=== PATIENT | male | born 1985 | race Hispanic/Latino ===

== ENCOUNTER 2018-08-27 10:22 | Emergency (ER) | payer SELFPAY ==
[~2018-08-27] VITALS: Ht 172.7 cm; Wt 142.9 kg
[~2018-08-27 10:22] MED LIST: BENTYL20 MG PO; LISINOPRIL10 MG PO; METFORMIN HCL500 MG PO
--- OUTSIDE RECORDS SUMMARY | 2018-08-27 10:24 | XMS REPORT | Clinical Summary ---
Author Author [facility] Organization [facility] Address Unknown Phone Unavailable Care Team Providers Care Defensive Line Coach Name Role Phone Asked, No Pcp PCP Unavailable Allergies No Known Allergies Medications End Date Status Medication Sig Dispensed Refills Start Date Active LISINOPRIL ORAL Take by mouth 0 daily. Unknown dose. Retail pharmacy unable to confirm dose and frequency-pha rmacy stated patient has not picked up prescriptions for a year. Active metFORMIN (GLUCOPHAGE) Take 500 mg 0 500 mg tablet by mouth 2 (two) times a day with meals. Retail pharmacy unable to confirm dose and frequency-pha rmacy stated patient has not picked up prescriptions for a year. 02/28/2018 sucralfate (CARAFATE) 1 Take 1 tablet 120 tablet 0 gram tablet (1 g total) 8 by mouth 4 (four) times a day for 30 days. 02/03/2018 ondansetron ODT Take 1 tablet 15 tablet 0 (ZOFRAN-ODT) 4 MG (4 mg total) 8 disintegrating tablet by mouth every 8 (eight) hours as needed for nausea or vomiting for up to 5 days. Active Problems Not on file Encounters Care Team Description Date Type Specialty Minh Louise MD Right upper quadrant abdominal pain (Primary Dx); Non-intractable vomiting with nausea, unspecified vomiting type; Type 2 diabetes mellitus with hyperglycemia, without long-term current use of insulin; Dehydration 01/29/2018 Emergency Emergency Medicine after 08/26/2017 Social History Date Tobacco Use Types Packs/Day Years Used Current Every Day Smoker Smokeless Tobacco: Never Used Alcohol Use Drinks/Week oz/Week Comments Yes Sex Assigned at Date Recorded Not on file Industry Job Start Date Occupation Not on file Not on file Not on file Travel End Travel History Travel Start No recent travel history available. Last Filed Vital Signs Time Taken Vital Sign Reading 01/29/2018 3:27 PM CDT Blood Pressure 176/93 01/29/2018 3:27 PM CDT Pulse 96 01/29/2018 11:03 AM CDT Temperature 36.9 C (98.5 F) 01/29/2018 3:27 PM CDT Respiratory Rate 18 01/29/2018 3:27 PM CDT Oxygen Saturation 98% - Inhaled Oxygen - Concentration - Weight - - Height - - Body Mass Index - Plan of Treatment Health Maintenance Due Date Last Done Comments DIABETIC RETINAL EYE EXAM 1984 DIABETIC FOOT EXAM 1994 URINE MICROALBUMIN 1994 HEPATITIS B VACCINES (1 11/22/2003 of 3 - Risk 3-dose series) INFLUENZA VACCINE 04/15/2018 IPV VACCINES Aged Out No longer eligible based on patient's age to complete this topic MENINGOCOCCAL VACCINE Aged Out No longer eligible based on patient's age to complete this topic Procedures Comments Procedure Name Priority Date/Time Associated Diagnosis POC GLUCOSE Routine 01/29/2018 3:21 PM CDT US GALLBLADDER STAT 01/29/2018 1:[address] ABDOMEN PELVIS W STAT 01/29/2018 CONTRAST 1:11 PM CDT POC GLUCOSE Routine 01/29/2018 11:37 AM CDT CREATINE KINASE, TOTAL STAT 01/29/2018 (CPK) 11:20 AM CDT C-REACTIVE PROTEIN STAT 01/29/2018 11:20 AM CDT ZZESTIMATED GFR STAT 01/29/2018 11:20 AM CDT HC COMPLETE BLD COUNT STAT 01/29/2018 W/AUTO DIFF 11:20 AM CDT LIPASE LEVEL STAT 01/29/2018 11:20 AM CDT COMPREHENSIVE METABOLIC STAT 01/29/2018 PANEL 11:20 AM CDT URINALYSIS SCREEN AND STAT 01/29/2018 MICROSCOPY, WITH REFLEX 11:20 AM CDT TO CULTURE URINE CULTURE STAT 01/29/2018 11:20 AM CDT after 08/26/2017 Results * POC glucose (01/29/2018 3:21 PM CDT) Only the most recent of 2 results within the time period is included. POC glucose 180 (H) 65 - 99 mg/dL [facility] DEPARTMENT OF Comment: PATHOLOGY AND [facility] Notified RN GENOMIC MEDICINE Meter ID: [id number] House Mover Supervisor: TIMOTEO PRESCOTT Performing Organization Address [facility] Servicescode Phone Number [facility] DEPARTMENT OF [address] [place] [phone] PATHOLOGY AND GENOMIC MEDICINE * US Gallbladder (01/29/2018 1:30 PM CDT) Narrative Performed At [facility]:epigastric pain COMPARISON:None. FINDINGS: PANCREAS: The pancreas is not well seen on the current study. LIVER: The liver has no mass lesion. There is no intrahepatic biliary dilatation. The liver has a increased fatty echogenic appearance. CBD: 0.4, within normal limits. Portal vein: The portal vein demonstrates normal hepatopedal flow. Gallbladder:The gallbladder does not have any stones. There is no wall thickening or any pericholecystic fluid. IMPRESSION: 1. The gallbladder does not have any stones. 2. There is no wall thickening nor any pericholecystic fluid. 3. Fatty echogenic appearance of the liver. [facility][id number] Procedure Note [facility], Radiology Results Incoming - 01/29/2018 1:47 PM CDT EXAMINATION: US GALLBLADDER CLINICAL HISTORY: epigastric pain COMPARISON: None. FINDINGS: PANCREAS: The pancreas is not well seen on the current study. LIVER: The liver has no mass lesion. There is no intrahepatic biliary dilatation. The liver has a increased fatty echogenic appearance. CBD: 0.4 , within normal limits. Portal vein: The portal vein demonstrates normal hepatopedal flow. Gallbladder: The gallbladder does not have any stones. There is no wall thickening or any pericholecystic fluid. IMPRESSION: 1. The gallbladder does not have any stones. 2. There is no wall thickening nor any pericholecystic fluid. 3. Fatty echogenic appearance of the liver. [facility]-[id number] Performing Organization Address [facility]/Zipcode Phone Number [facility] [address] [place] [address] * CT Abdomen Pelvis W Contrast (01/29/2018 1:11 PM CDT) Narrative Performed At EXAMINATION:CT ABDOMEN PELVIS W CONTRAST [facility] CLINICAL HISTORY:abdominal painN V TECHNIQUE: Multiple axial images of the abdomen and pelvis were obtained following intravenous administration of iodinated contrast. Sagittal and coronal computerized reformatted images were also obtained. CT imaging was performed with iterative reconstruction technique and/or automated exposure control to reduce radiation dose. COMPARISON:None. FINDINGS: Abdomen: Heart size is within normal limits. Lung bases are within normal limits. Liver is fatty. Gallbladder is unremarkable. Spleen, pancreas, and adrenals are within normal limits. Kidneys are also within normal limits. The abdominal aorta is unremarkable. Tiny left para-aortic lymph nodes are present. Appendix is unremarkable. Pelvis: There is no enlarged pelvic lymph node.Bladder is unremarkable.Bones are age appropriate. IMPRESSION: No acute process identified. Fatty infiltration of the liver. [facility]-[id number] Procedure Note Hm Interface, Radiology Results Incoming - 01/29/2018 1:44 PM CDT EXAMINATION: CT ABDOMEN PELVIS W CONTRAST CLINICAL HISTORY: abdominal pain N V TECHNIQUE: Multiple axial images of the abdomen and pelvis were obtained following intravenous administration of iodinated contrast. Sagittal and coronal computerized reformatted images were also obtained. CT imaging was performed with iterative reconstruction technique and/or automated exposure control to reduce radiation dose. COMPARISON: None. FINDINGS: Abdomen: Heart size is within normal limits. Lung bases are within normal limits. Liver is fatty. Gallbladder is unremarkable. Spleen, pancreas, and adrenals are within normal limits. Kidneys are also within normal limits. The abdominal aorta is unremarkable. Tiny left para-aortic lymph nodes are present. Appendix is unremarkable. Pelvis: There is no enlarged pelvic lymph node. Bladder is unremarkable. Bones are age appropriate. IMPRESSION: No acute process identified. Fatty infiltration of the liver. [facility]-[id number] Performing Organization Address City/State/Zipcode Phone Number [facility] [address] [place] [address] * Urinalysis screen and microscopy, with reflex to culture (01/29/2018 11:20 AM CDT) Specimen site Clean catch [facility]MENT OF PATHOLOGY AND GENOMIC MEDICINE Color, UA Yellow [facility] OF PATHOLOGY AND GENOMIC MEDICINE Appearance, UA Clear [facility] OF PATHOLOGY AND GENOMIC MEDICINE Specific gravity, UA 1.025 1.001 - 1.035 [facility] DE[facility] OF PATHOLOGY AND GENOMIC MEDICINE pH, UA 6.0 5.0 - 8.5 [facility] OF PATHOLOGY AND GENOMIC MEDICINE Protein, UA 1+ (A) Negative [facility] OF PATHOLOGY AND GENOMIC MEDICINE Glucose, UA 3+ (A) Negative [facility] OF PATHOLOGY AND GENOMIC MEDICINE Ketones, UA Trace (A) Negative [facility] OF PATHOLOGY AND GENOMIC MEDICINE Bilirubin, UA Negative Negative [facility] OF PATHOLOGY AND GENOMIC MEDICINE Blood, UA Negative Negative [facility] OF PATHOLOGY AND GENOMIC MEDICINE Nitrite, UA Negative Negative [facility] DE[facility]MENT OF PATHOLOGY AND GENOMIC MEDICINE Urobilinogen, UA <2.0 <2.0 [facility] DE[facility]MENT OF PATHOLOGY AND GENOMIC MEDICINE Leukocyte esterase, UA Negative Negative [facility] DE[facility]MENT OF PATHOLOGY AND GENOMIC MEDICINE WBC, UA 1 0 - 1 /HPF [facility] DE[facility]MENT OF PATHOLOGY AND GENOMIC MEDICINE RBC, UA 1 0 - 5 /HPF [facility] OF PATHOLOGY AND GENOMIC MEDICINE Bacteria, UA Few None seen [facility] DE[facility]MENT OF PATHOLOGY AND GENOMIC MEDICINE Yeast, UA None seen [facility] DE[facility]MENT OF PATHOLOGY AND GENOMIC MEDICINE Yeast with pseudohyphae, None seen [facility] DEPARTMENT [facility] PATHOLOGY AND GENOMIC MEDICINE Specimen Urine Performing Organization Address City/[facility] [place] [address] PATHOLOGY [facility] * Estimated GFR (01/29/2018 11:20 AM CDT) GFR Non Af Amer >90 mL/min/1.73 m2 [facility] DEPARTMENT OF PATHOLOGY AND GENOMIC MEDICINE GFR Af Amer >90 mL/min/1.73 m2 [facility] DEPARTMENT OF Comment: PATHOLOGY AND Chronic kidney disease: <60 GENOMIC MEDICINE mL/min/1.73m2 Kidney failure: <15 mL/min/1.73m2 The estimated GFR is calculated from the IDMS-traceable Modification of Diet in Renal Disease Equation. The accuracy of the calculation is poor when the creatinine is normal. Calculated values >90 mL/min/1.73m2 are not reported. This equation has not been validated in children (<18 years), women, the elderly (>70 years), or ethnic groups other than Caucasians and Americans. Specimen Plasma specimen Performing Organization Address City/[facility] Servicescode Phone Number [facility] [address] [place] [address] PATHOLOGY [facility] * CBC with platelet and differential (01/29/2018 11:20 AM CDT) WBC 10.28 4.50 - 11.00 k/uL [facility] DEPARTMENT OF PATHOLOGY AND GENOMIC MEDICINE RBC 5.51 4.40 - 6.00 m/uL [facility] DEPARTMENT OF PATHOLOGY AND GENOMIC MEDICINE HGB 16.8 14.0 - 18.0 g/dL [facility] DE[facility]MENT OF PATHOLOGY AND GENOMIC MEDICINE HCT 47.7 41.0 - 51.0 % [facility] DEPARTMENT OF PATHOLOGY AND GENOMIC MEDICINE MCV 86.6 82.0 - 100.0 fL [facility] DEPARTMENT OF PATHOLOGY AND GENOMIC MEDICINE MCH 30.5 27.0 - 34.0 pg [facility] DEPARTMENT OF PATHOLOGY AND GENOMIC MEDICINE MCHC 35.2 31.0 - 37.0 g/dL [facility] DEPARTMENT OF PATHOLOGY AND GENOMIC MEDICINE RDW - SD 39.7 37.0 - 55.0 fL [facility] DEPARTMENT OF PATHOLOGY AND GENOMIC MEDICINE MPV 12.0 8.8 - 13.2 fL [facility] DEPARTMENT OF PATHOLOGY AND GENOMIC MEDICINE Platelet count 196 150 - 400 k/uL [facility] DE[facility]MENT OF PATHOLOGY AND GENOMIC MEDICINE Nucleated RBC 0.00 /100 WBC [facility] DE[facility]MENT OF PATHOLOGY AND GENOMIC MEDICINE Neutrophils 82.9 (H) 39.0 - 69.0 % [facility] DEPARTMENT OF PATHOLOGY AND GENOMIC MEDICINE Lymphocytes 7.4 (L) 25.0 - 45.0 % [facility] DE[facility]MENT OF PATHOLOGY AND GENOMIC MEDICINE Monocytes 5.4 0.0 - 10.0 % [facility] DE[facility]MENT OF PATHOLOGY AND GENOMIC MEDICINE Eosinophils 3.3 0.0 - 5.0 % [facility] DE[facility]MENT OF PATHOLOGY AND GENOMIC MEDICINE Basophils 0.5 0.0 - 1.0 % [facility] DE[facility]MENT OF PATHOLOGY AND GENOMIC MEDICINE Immature granulocytes 0.5Comment: "Immature 0.0 - 1.0 % [facility] DE[facility]MENT OF granulocytes" (promyelocytes, PATHOLOGY AND myelocytes, metamyelocytes) GENOMIC MEDICINE Specimen Blood Performing Organization Address City/State/Zipcode Phone Number [address] [address] PATHOLOGY AND GENOMIC MEDICINE * Urine culture (01/29/2018 11:20 AM CDT) Urine culture SEE COMMENTComment: [facility] DE[facility] OF Bacteriuria screen negative. PATHOLOGY AND GENOMIC MEDICINE Performing Organization Address City/State/Zipcode Phone Number [address] [address] PATHOLOGY AND GENOMIC MEDICINE * C-reactive protein (01/29/2018 11:20 AM CDT) CRP 0.61 (H) 0.00 - 0.50 mg/dL [facility] DEPARTMENT OF PATHOLOGY AND GENOMIC MEDICINE Specimen Plasma specimen Narrative Performed At [facility] added and read back to Tammie Morocho at 14:49 01/29/[address] DEPARTMENT OF ?Specimen must be received in the laboratory within 2 hours of PATHOLOGY AND ?collection. GENOMIC MEDICINE ?Specimen Source->Urine Performing Organization Address City/[facility] Servicescode Phone Number [facility] [place] [address] PATHOLOGY AND GENOMIC MEDICINE * Lipase level (01/29/2018 11:20 AM CDT) Lipase 25 13 - 60 U/L [facility] DEPARTMENT OF PATHOLOGY AND GENOMIC MEDICINE Specimen Plasma specimen Performing Organization Address [facility] Services[place] [address] PATHOLOGY AND GENOMIC MEDICINE * Creatine kinase, total (CPK) (01/29/2018 11:20 AM CDT) Creatine kinase 73 39 - 308 U/L [facility] DEPARTMENT OF PATHOLOGY AND GENOMIC MEDICINE Specimen Plasma specimen Narrative Performed At [facility] added and read back to Tammie Morocho at 14:49 01/29/[address] DEPARTMENT OF ?Specimen must be received in the laboratory within 2 hours of PATHOLOGY AND ?collection. GENOMIC MEDICINE ?Specimen Source->Urine Performing Organization Address [facility] [place] [address] PATHOLOGY AND GENOMIC MEDICINE * Comprehensive metabolic panel (01/29/2018 11:20 AM CDT) Sodium 136 135 - 148 mEq/L [facility] DEPARTMENT OF PATHOLOGY AND GENOMIC MEDICINE Potassium 4.3 3.5 - 5.0 mEq/L [facility] DEPARTMENT OF PATHOLOGY AND GENOMIC MEDICINE Chloride 96 (L) 98 - 112 mEq/L [facility] DEPARTMENT OF PATHOLOGY AND GENOMIC MEDICINE CO2 23 (L) 24 - 31 mEq/L [facility] DEPARTMENT OF PATHOLOGY AND GENOMIC MEDICINE Anion gap 17@ANIO (H) 7 - 15 mEq/L [facility] DEPARTMENT OF PATHOLOGY AND GENOMIC MEDICINE BUN 14 6 - 20 mg/dL [facility] DEPARTMENT OF PATHOLOGY AND GENOMIC MEDICINE Creatinine 0.8 0.7 - 1.2 mg/dL [facility] DEPARTMENT OF PATHOLOGY AND GENOMIC MEDICINE Glucose 262 (H) 65 - 99 mg/dL [facility] DEPARTMENT OF PATHOLOGY AND GENOMIC MEDICINE Calcium 9.1 8.3 - 10.2 mg/dL [facility] DEPARTMENT OF PATHOLOGY AND GENOMIC MEDICINE Protein 7.9 6.3 - 8.3 g/dL [facility] DEPARTMENT OF Comment: PATHOLOGY AND [place] GENOMIC MEDICINE 4.6-7.0 g/dL 1 week 4.4-7.6 g/dL 7 months-1year 5.1-7.3 g/dL 1-2 years5.6-7 .5 g/dL >3 years6.0-8 .0 g/dL 18-150 6.3-8.3 g/dL Albumin 3.7 3.5 - 5.0 g/dL [facility] DEPARTMENT OF PATHOLOGY AND GENOMIC MEDICINE A/G ratio 0.9 0.7 - 3.8 [facility] DEPARTMENT OF PATHOLOGY AND GENOMIC MEDICINE Alkaline phosphatase 98 40 - 129 U/L [facility] DEPARTMENT OF PATHOLOGY AND GENOMIC MEDICINE AST 70 (H) 10 - 50 U/L [facility] DEPARTMENT OF PATHOLOGY AND GENOMIC MEDICINE ALT 73 (H) 5 - 50 U/L [facility] DEPARTMENT OF PATHOLOGY AND GENOMIC MEDICINE Total bilirubin 0.6 0.0 - 1.2 mg/dL [facility] DEPARTMENT OF PATHOLOGY AND GENOMIC MEDICINE Specimen Plasma specimen Performing Organization Address City/State/Zipcode Phone Number [facility] DEPARTMENT OF [address] [place] [phone] PATHOLOGY AND GENOMIC MEDICINE after 08/26/2017 Advance Directives Patient has advance care planning documents on file. For more information, madeline lira contact: Jean Mcmanus [address] [place] [address]
[2018-08-27] MEDS ORDERED: CLINDAMYCIN HC300 MG PO (11:46)
[2018-08-27] MEDS ORDERED: BACTRIM DS TAB1 EACH PO (11:46)
[2018-08-27] MEDS ORDERED: TYLENOL WITH C1 EACH PO (11:46)
== END 2018-08-27 12:54 | disposition home or self-care (01) ==
LOC: ER 10:22
DX: L02.416 Cutaneous abscess of left lower limb (principal); I10 Essential (primary) hypertension; E11.9 Type 2 diabetes mellitus without complications; F17.210 Nicotine dependence, cigarettes, uncomplicated
CPT/HCPCS: 99282